=== PATIENT | female | born 1980 | race Caucasian/White ===

== ENCOUNTER → 2017-02-18 | Outpatient (REF) | payer BC ==
[2017-02-18 17:53] LABS: ALBUMIN 4.5 g/dL (3.4-5.0); ANION GAP 15.1 MEQ/L (3-15); CALCULATED IONIZED CALCIUM 4.4 mg/dL (3.8-4.6); TOTAL PROTEIN 7.3 g/dL (6.4-8.5)
[2017-02-18 17:55] LABS: BASOPHILS % (AUTO) 0 % (0-2); EOSINOPHILS # (AUTO) 0.2 10^3uL; EOSINOPHILS % (AUTO) 2 % (0-4); LYMPHOCYTES # (AUTO) 3.3 X10^3; MEAN CORPUSCULAR HGB CONC 34.3 g/dL (31.0-37.0); MEAN CORPUSCULAR VOLUME 92 FL (80-100); MEAN PLATELET VOLUME 10.6 FL (6.0-9.5); MONOCYTES % (AUTO) 10 % (3-11); NEUTROPHILS # (AUTO) 5.5 X10^3; NEUTROPHILS % (AUTO) 55 % (51-67); PLATELET COUNT 281 10^3uL (150-450); WHITE BLOOD COUNT 9.95 10^3uL (4.0-11.0)
[2017-02-18 17:59] LABS: MEAN CORPUSCULAR HEMOGLOBIN 31.4 PG (26.0-34.0)
== END ==
LOC: LAB 17:01
PROVIDERS: ATTEND Nurse Practitioner Family
DX: R53.83 Other fatigue (principal)
CPT/HCPCS: 80053; 84443; 85025

== ENCOUNTER → 2017-02-23 | Outpatient (CLI) | payer BC ==
[~2017-02-23] MED LIST: methylPREDNISolone 80 MG/ML (DEPO MEDROL) VIAL IM ONE
--- NOTE | 2017-02-24 08:38 | PAIN MANAGEMENT ---
Date of note: 02/23/2017 Procedure: Epidural steroid injection This is a 36-year-old female patient under the care of Chely Selby APRN. The patient is referred to anesthesia for the purpose of a cervical epidural steroid injection secondary to chronic neck pain, disk bulge with radicular symptoms following the C6-7 dermatome levels. The pain goes into her arms, down the spine, along the triceps on the back of the arm following C6-7. She also may have a disk bulge at C5-6, although her pain is following the C6-C7, more C7 dermatome levels. Based on presentation today and orders received, we decided to proceed forward with a C6-7 epidural steroid injection. Informed consent was obtained and the patient was placed in the left lateral decubitus. Orders for procedure verified. Patient denies any bleeding tendencies. After informed consent obtained, the patient was positioned for the procedure. The area was prepped and draped using aseptic technique. The skin and overlying tissues were localized using 3 mL of 1% Preservative-Free lidocaine using a 25-gauge 1.5-inch needle. A 20-gauge Tuohy needle was advanced, using "loss of resistance" technique, to the epidural space. No blood, cerebral spinal fluid, pain, or paresthesia noted on entry of the epidural space. A 1 mL solution of Depo-Medrol 80 mg was injected slowly without mass volume effect. The needle was then removed and the patient was turned to the supine position where she remained for approximately 10 to 15 minutes. She is released with vital signs stable and faculties intact. She is asked to follow up with me via my cellphone in approximately 3 days. The patient states she understands these discharge instructions and I will follow her from there.
== END ==
LOC: EDSTATUS 15:45 → PMC 15:47
PROVIDERS: ATTEND Nurse Practitioner Family
DX: M50.123 Cervical disc disorder at C6-C7 level with radiculopathy (principal); J45.909 Unspecified asthma, uncomplicated; F41.9 Anxiety disorder, unspecified; K21.9 Gastro-esophageal reflux disease without esophagitis; G43.909 Migraine, unspecified, not intractable, without status migrainosus
CPT/HCPCS: 62320; J1040